=== PATIENT | male | born 1975 | race Caucasian/White ===

== ENCOUNTER 2018-05-03 20:59 | Emergency (ER) | payer BC, OTHER ==
--- OUTSIDE RECORDS SUMMARY | 2018-05-03 21:02 | XMS REPORT | Encounter Summary ---
:1975 Author Reason for Visit Medical Complaint Instructions 1. Acute right otitis media amoxicillin 500 mg capsule 2. Fluid level behind tympanic membrane fluticasone 50 mcg/actuation nasal spray,suspension 3. Elevated blood pressure elevated blood pressure: care instructions 4. Body mass index 30+ - obesity Discussion Note: None recorded. Plan of Care Patient Instructions Handouts given to patient giving further instructions and care regarding diagnosis recommended and discussed to F/U if symptoms persist or worsen. Reminders Provider Appointments None recorded. Lab None recorded. Referral None recorded. Procedures None recorded. Surgeries None recorded. Imaging None recorded. Medications Name Start Date amoxicillin 500 mg capsule Take 1 capsule twice a day by oral route for 7 days. fluticasone 50 mcg/actuation nasal spray,suspension [place] 1 spray every day by intranasal route. lisinopril 5 mg tablet TAKE ONE (1) TABLET(S) BY MOUTH ONCE A DAY. Medications Administered None recorded. Vitals Height Weight BMI Blood Pressure 6 ft 2 in 250 lbs 32.1 kg/m2 138/90 mm[Hg] Lab Results None recorded. Allergies Code Code System Name Reaction Severity Status Onset RxNorm Azithromycin Active Problems None recorded. Procedures None recorded. Vaccine List Vaccine Type Td(adult) unspecified formulation 10/10/2014 Social History Smoking Status Former Smoker Past Encounters 04/20/2018 Acute Right Otitis Media; Fluid Level behind Tympanic Membrane; Elevated Blood Pressure; Body Mass Index 30+ - Obesity NATHALIE Low-C: [id number], [place] [address], Ph. [phone] History of Present Illness Headache Reported By: Patient HPI: Location: occipital, temporal, band around head. Quality: not the worst headache ever, similar to previous headaches, aching, throbbing. Severity: pain level 5/10. Duration: occur many times in groups or clusters, started 3 days ago. Onset/Timing: worse, abrupt onset, occur daily. MIDAS: Migraine Disability Assessment 1. On how many days in the last 3 months did you miss work or school because of your headaches? 3, 2. How many days in the last 3 months was your productivity at work or school reduced by half or more because of your headaches? 3 (Do not include days counted in question 1), 3. On how many days in the last 3 months did you not do household work because of headaches? 0, 4. How many days in the last 3 months was your productivity in household work reduced by half or more because of your headaches? 3 (Do not include days counted in Question 3.), 5. On how many days in the last 3 months did you miss family, social or leisure activities because of your headaches? 0, Score (add 1-5): 6 to 10 - Grade 2 - Mild or infrequent disability, A. On how many days in the last three months did you have a headache? 3, B. On a scale of 0 - 10, on average how painful were these headaches (where 0=no pain at all and 10=pain as bad as it can be)? 5. Modifying factors: OTC medication, nothing gives relief, nothing makes it worse. Associated Symptoms: no fever/chills, no muscle aches, no headache, no vomiting, no sensitivity to light, tearing/watery eyes, no confusion, no slurred speech, no double vision, no motor paralysis, no sleep disturbances, no hoarseness, no sore throat, no hearing loss Review of Systems Basic Reported By: Patient Constitutional: Constitutional: no fever Eyes: Eyes: no eye complaints Ebjn-Wlbw-Ggzfc-Throat: Ears: no ear complaints. Nose: nose/sinus problems. Mouth/Throat: no sore throat Respiratory: Respiratory: no cough, no wheezing Gastrointestinal: Gastrointestinal: no abdominal pain Genitourinary: Genitourinary: no urinary complaints Musculoskeletal: Musculoskeletal: no back pain Skin: Skin: no rashes Neurologic: Neurologic: no headaches, headache Physical Exam Adult Basic, Adult Male Complete Reported By: Patient Constitutional: General Appearance: healthy-appearing, well-nourished, well-developed. Level of Distress: NAD. Ambulation: ambulating normally Psychiatric: Mental Status: active and alert. Orientation: to time, to place, to person Eyes: Lids and Conjunctivae: non-injected, no discharge, no pallor. Pupils: PERRLA. Corneas: grossly intact, fluorescein stain--normal. EOM: EOMI. Lens: clear. Sclerae: non-icteric. Vision: acuity grossly intact, peripheral vision grossly intact Wao-Lyqc-Mripa-Throat: Ears: no lesions on external ear, no outer ear tenderness, EACs clear, TM mobility normal, TM erythematous, middle ear fluid. Hearing: no hearing loss. Nose: no lesions on external nose, nares patent, no septal deviation, nasal passages clear, no sinus tenderness, no nasal discharge. Lips, Teeth, and Gums: no mouth or lip ulcers, no bleeding gums, normal dentition. Oropharynx: moist mucous membranes, no erythema, no exudates, tonsils not enlarged Lungs: Respiratory effort: no dyspnea, no tachypnea, no use of accessory muscles, no intercostal retractions. Auscultation: breath sounds normal, good air movement Cardiovascular: Heart Auscultation: RRR, no murmurs. Pulses including femoral / pedal: normal throughout Musculoskeletal:: Motor Strength and Tone: normal motor strength, normal tone, normal. Joints, Bones, and Muscles: normal movement of all extremities, no bony abnormalities, no contractures, no malalignment, no tenderness. Extremities: no cyanosis, no edema, no varicosities, no palpable cord Neurologic: Gait and Station: normal gait, normal station. Cranial Nerves: grossly intact. Sensation: grossly intact. Reflexes: DTRs 2+ bilaterally throughout Skin: Inspection and palpation: no rash, no lesions, no ulcer, no abnormal nevi, no induration, no nodules, good turgor, no jaundice. Nails: normal Back: Thoracolumbar Appearance: normal curvature Abdomen: Bowel Sounds: normal
--- OUTSIDE RECORDS SUMMARY | 2018-05-03 21:02 | XMS REPORT | Continuity of Care Document ---
:1975 Author Organization Interface Problems Problem Status Onset Classification Date Comments Source Date Reported Fluid level Diagnosis 04/20/2018 [facility] behind 8 tympanic membrane Acute right Diagnosis 04/20/2018 [facility] otitis media 8 Body mass Diagnosis 04/20/2018 [facility] index 30+ - 8 obesity Elevated Diagnosis 04/20/2018 [facility] blood 8 pressure Medications Medication Details Route Status Patient Ordering Order Source Instructions Provider Date Amoxicillin amoxicillin Active [facility] 500 MG Oral 500 mg Capsule capsule Take 1 capsule twice a day by oral route for 7 days. Fluticasone fluticasone Active [facility] propionate 50 0.05 MG/ACTUAT mcg/actuation Metered Dose nasal Nasal [place] spray,suspens ion [place] 1 spray every day by intranasal route. Lisinopril 5 lisinopril 5 Active [facility] MG Oral Tablet mg tablet TAKE ONE (1) TABLET(S) BY MOUTH ONCE A DAY. Allergies, Adverse Reactions, Alerts Substance Category Reaction Severity Reaction Status Date Comments Source type Reported Azithromycin Allergy to [facility] substance 8 Immunizations Immunization Date Given Site Status Last Comments Source Updated Td(adult) 10/10/2014 completed [facility] unspecified formulation Results Order Results Value Reference Date Interpretation Comments Source Name Range Vital Signs Vital Sign Value Date Comments Source Diastolic (mm Hg) 90 04/20/2018 [facility] Height 74 04/20/2018 [facility] Systolic (mm Hg) 138 04/20/2018 [facility] Weight 250 04/20/2018 [facility] Encounters Location Location Encounter Encounter Reason Attending ADM DC Status Source Details Type Number For Provider Date Date Visit [place] - Vicenta [id number] Vicenta 04/20 [facility] Gary [id number] Gary /2017 - [employer] OPERATOR-C: [id number] [place] [address] , Ph. Procedures Procedure Code Date Perfomer Comments Source
[2018-05-03] MEDS ORDERED: NA CHLORIDE 0.9% 1,000 ML ONE (22:06)
[2018-05-03 22:24] LABS: Absolute Lymphocytes (CBC) 2.6 K/uL (0.7-4.9); Absolute Monocytes 0.7 K/uL (0.1-1.3); Absolute Neutrophil 3.5 K/uL (1.8-8.0); Basophils % 0.4 % (0-1.3); Eosinophils % 1.8 % (0-4.4); Hematocrit 39.7 % (39.6-49.0); MCH 29.8 pg (27.0-35.0); MCV 87.4 fL (80-100); MPV 8.1 fL (7.6-11.3); Monocytes % 10.2 % (3.3-12.3); RBC Red Blood Cell Count 4.54 M/uL (4.33-5.43)
[2018-05-03 22:34] LABS: Protime INR 0.97
--- NOTE | 2018-05-03 22:37 | RAD REPORT ---
EXAM DESCRIPTION: CT - Head Brain Wo Cont - 05/03/2018 9:59 pm CLINICAL HISTORY: Right-sided facial numbness COMPARISON: CT head October 2016 TECHNIQUE: Axial 5 mm thick images of the head were obtained without IV contrast. All CT scans are performed using dose optimization technique as appropriate and may include automated exposure control or mA/KV adjustment according to patient size. FINDINGS: No intracranial hemorrhage, mass, edema or shift of mid-line structures. No acute infarcti on changes seen. No abnormal extra-axial fluid collections. Ventricles are normal. Mastoid air cells and visualized portions of the paranasal sinuses are clear. No acute bony findings. IMPRESSION: Negative non-contrast CT head examination. Continued, unexplained neurologic symptoms c an be further addressed with MR imaging. No significant change from comparison.
[2018-05-03 22:53] LABS: ALT/SGPT 28 U/L (12-78); AST/SGOT 16 U/L (15-37); Albumin 4.3 g/dL (3.4-5.0); Alkaline Phosphatase 68 U/L (45-117); BUN Blood Urea Nitrogen 15 mg/dL (7-18); Bicarbonate 24 mmol/L (21-32); Bilirubin Direct 0.2 mg/dL (0-0.2); Bilirubin Total 0.7 mg/dL (0.2-1.0); CKMB Creatine Kinase MB < 1.0 ng/mL (0.3-3.6); Creatine Phosphokinase 110 U/L (39-308); Glucose Level 100 mg/dL (74-106); Magnesium 2.2 mg/dL (1.8-2.4); NT PRO-BNP 13 pg/mL (<125); Potassium 3.8 mmol/L (3.5-5.1); Protein, Total 7.6 g/dL (6.4-8.2); Sodium Level 140 mmol/L (136-145)
--- NOTE | 2018-05-03 23:04 | RAD REPORT ---
EXAM DESCRIPTION: RAD - Chest Single View - 05/03/2018 10:07 pm CLINICAL HISTORY: Hypertension Chest pain. COMPARISON: Chest Single View dated 11/08/2016 FINDINGS: Portable technique limits examination quality. The lungs are grossly clear. The heart is normal in size. No displaced fractures. IMPRESSION: No acute intrathoracic process suspected.
--- NOTE | 2018-05-03 23:32 | EDPHYS ---
Physician Documentation [facility] Name: Jonn Mane Age: 42 yrs Sex: Male : 1975 Arrival Date: 05/03/2018 Time: 21:11 Bed 18 Private MD: ED Physician Navid Lara HPI: 05/03 21:48 This 42 yrs old Male presents to ER via Ambulatory with complaints of cp Numbness Of Face, Near Syncope, Dizziness. 21:48 The patient's problem is reported as weakness, that is generalized, dizziness, cp lightheaded, near syncope, paresthesias of face. Onset: The symptoms/episode began/occurred today. Duration: This was a single incident, now improved. Context: symptoms became apparent this afternoon, occurred at home, occurred while the patient was at rest, Possible contributing factors include: recent medication change, blood pressure medication was increased. 21:48 Associated signs and symptoms: Pertinent negatives: abdominal pain, chest pain, cp confusion, headache, vomiting. Severity of symptoms: in the emergency department the symptoms have improved markedly. Patient's baseline: Neuro: alert and fully oriented, Motor: no deficits, Ambulation: walks without assistance, Speech: normal. Historical: - Allergies: 21:25 Azithromycin; aj1 - Home Meds: 21:25 lisinopril 20 mg Oral tab 1 tab once daily [Active]; Lipitor 10 mg Oral tab 1 tab once aj1 daily [Active]; gabapentin oral oral nightly [Active]; - PMHx: 21:25 Hypertension; Hyperlipidemia; aj1 - PSHx: 21:25 bilateral hip replacements; aj1 - Immunization history:: Flu vaccine is up to date. - Social history:: Smoking status: Patient/guardian denies using tobacco. - Ebola Screening: : Patient denies travel to an Ebola-affected area in the 21 days before illness onset. ROS: 21:55 Constitutional: Negative for body aches, chills, fever, poor PO intake. cp 21:55 Eyes: Negative for injury, pain, redness, and discharge. cp 21:55 ENT: Negative for drainage from ear(s), ear pain, sore throat, difficulty swallowing, difficulty handling secretions. 21:55 Cardiovascular: Negative for chest pain, edema, palpitations. 21:55 Respiratory: Negative for cough, shortness of breath, wheezing. 21:55 Abdomen/GI: Negative for abdominal pain, nausea, vomiting, and diarrhea, constipation, anorexia, black/tarry stool, rectal bleeding. 21:55 Back: Negative for radiated pain. 21:55 : Negative for urinary symptoms. 21:55 MS/extremity: Positive for paresthesias, of the face. 21:55 Skin: Negative for cellulitis, rash. 21:55 Neuro: Positive for dizziness, near syncope, general weakness. 21:55 All other systems are negative. Exam: 21:55 ECG was reviewed by the Attending Physician. cp 22:00 Constitutional: The patient appears in no acute distress, alert, awake, comfortable, cp non-diaphoretic, non-toxic, well developed, well nourished. 22:00 Head/Face: Normocephalic, atraumatic. Eyes: Pupils equal round and reactive to light, cp extra-ocular motions intact. Lids and lashes normal. Conjunctiva and sclera are non-icteric and not injected. Cornea within normal limits. Periorbital areas with no swelling, redness, or edema. ENT: Nares patent. No nasal discharge, no septal abnormalities noted. Tympanic membranes are normal and external auditory canals are clear. Oropharynx with no redness, swelling, or masses, exudates, or evidence of obstruction, uvula midline. Mucous membranes moist. Neck: Trachea midline, no thyromegaly or masses palpated, and no cervical lymphadenopathy. Supple, full range of motion without nuchal rigidity, or vertebral point tenderness. No Meningismus. Chest/axilla: Normal chest wall appearance and motion. Nontender with no deformity. No lesions are appreciated. Cardiovascular: Regular rate and rhythm with a normal S1 and S2. No gallops, murmurs, or rubs. Normal PMI, no JVD. No pulse deficits. Respiratory: Lungs have equal breath sounds bilaterally, clear to auscultation and percussion. No rales, rhonchi or wheezes noted. No increased work of breathing, no retractions or nasal flaring. Abdomen/GI: Soft, non-tender, with normal bowel sounds. No distension or tympany. No guarding or rebound. No evidence of tenderness throughout. Skin: Warm, dry with normal turgor. Normal color with no rashes, no lesions, and no evidence of cellulitis. Neuro: Awake and alert, GCS 15, oriented to person, place, time, and situation. Cranial nerves II-XII grossly intact. Motor strength 5/5 in all extremities. Sensory grossly intact. Cerebellar exam normal. Normal gait. 23:22 Radiologist reports: no acute findings Vital Signs: 21:25 BP 164 / 105; Pulse 84; Resp 18; Temp 98.2; Pulse Ox 100% on R/A; Weight 113.4 kg (R); aj1 Height 6 ft. 2 in. (187.96 cm) (R); Pain 0/10; 23:09 BP 126 / 88; Pulse 77; Resp 16 S; Pulse Ox 97% on R/A; jd3 23:17 BP 131 / 76 Supine; Pulse 77; Resp 16 S; Pulse Ox 99% on R/A; jd3 23:17 BP 139 / 93 Sitting; Pulse 80; Resp 16 S; Pulse Ox 100% on R/A; jd3 23:17 BP 134 / 89 Standing; Pulse 78; Resp 16 S; Pulse Ox 100% on R/A; Pain 0/10; jd3 21:25 Body Mass Index 32.10 (113.40 kg, 187.96 cm) aj 23:17 doen by [facility] apparatus engineering technologist jd3 MDM: 21:39 Patient medically screened. cp 22:00 Differential diagnosis: CVA, TIA, metabolic disorder, drug effects. cp 23:29 Data reviewed: vital signs, nurses notes, lab test result(s), EKG, radiologic studies, cp CT scan, plain films. 05/03 21:47 Order name: Basic Metabolic Panel; Complete Time: 23:19 cp 05/03 23:19 Interpretation: Normal except: CL 108; GFR 74. cp 05/03 21:47 Order name: CBC with Diff; Complete Time: 23:19 cp 05/03 23:19 Interpretation: Normal except: HGB 13.5. cp 05/03 21:47 Order name: Ckmb; Complete Time: 23:19 cp 05/03 21:47 Order name: CPK; Complete Time: 23:19 cp 05/03 21:47 Order name: LFT's; Complete Time: 23:19 cp 05/03 21:47 Order name: Magnesium; Complete Time: 23:19 cp 05/03 21:47 Order name: NT PRO-BNP; Complete Time: 23:19 cp 05/03 21:47 Order name: PT-INR; Complete Time: 23:19 cp 05/03 21:47 Order name: Ptt, Activated; Complete Time: 23:19 cp 05/03 21:47 Order name: Troponin (emerg Dept Use Only); Complete Time: 23:19 cp 05/03 23:20 Interpretation: TROPED < 0.02; Reviewed. 05/03 21:47 Order name: XRAY Chest (1 view); Complete Time: 23:19 cp 05/03 21:47 Order name: CT Head Brain wo Cont; Complete Time: 23:19 cp 05/03 23:26 Order name: Urine Dipstick--Ancillary (enter results) rg2 05/03 21:38 Order name: EKG; Complete Time: 21:39 cp 05/03 21:38 Order name: EKG - Nurse/Tech; Complete Time: 21:52 cp 05/03 21:38 Order name: Orthostatics; Complete Time: 23:25 cp 05/03 21:47 Order name: Cardiac monitoring; Complete Time: 21:51 cp 05/03 21:47 Order name: IV Saline Lock; Complete Time: 22:01 cp 05/03 21:47 Order name: Labs collected and sent; Complete Time: 22:16 cp 05/03 21:47 Order name: O2 Per Protocol; Complete Time: 21:52 cp 05/03 21:47 Order name: O2 Sat Monitoring; Complete Time: 21:52 cp 05/03 21:47 Order name: Urine Dipstick-Ancillary (obtain specimen); Complete Time: 23:25 cp EC:55 Rate is 72 beats/min. Rhythm is regular. ND interval is normal. QRS interval is cp prolonged at 110 msec. QT interval is normal. No ST changes noted. Interpreted by me. Reviewed by me. Administered Medications: 22:09 Drug: NS 0.9% 1000 ml Route: IV; Rate: 1 bolus; Site: right antecubital; jd3 23:55 Follow up: Response: No adverse reaction; IV Status: Completed infusion; IV Intake: jd3 1000ml Disposition: 05/04 06:55 Co-signature as Attending Physician, Navid Lara MD I agree with the assessment and rosangela plan of care. Disposition: 05/03/18 23:32 Discharged to Home. Impression: Dizziness, Weakness - General. - Condition is Stable. - Discharge Instructions: Dizziness, Near-Syncope, Weakness, Managing Your Hypertension. - Medication Reconciliation Form, Thank You Letter, Antibiotic Education, Prescription Opioid Use form. - Follow up: Private Physician; When: 1 - 2 days; Reason: Recheck today's complaints. - Problem is new. - Symptoms have improved. Signatures: Dispatcher [employer] EDLexi Enciso RN RN aj1 Navid Lara MD MD cha Page, Corey, PA PA cp Davies, Jonathon, RN RN jd3 Corrections: (The following items were deleted from the chart) 05/03 23:55 23:32 05/03/2018 23:32 Discharged to Home. Impression: Dizziness; Weakness - General. jd3 Condition is Stable. Forms are Medication Reconciliation Form, Thank You Letter, Antibiotic Education, Prescription Opioid Use. Follow up: Private Physician; When: 1 - 2 days; Reason: Recheck today's complaints. Problem is new. Symptoms have improved. cp
--- NOTE | 2018-05-03 23:32 | ER ---
Nurse's Notes [facility] Name: Jonn Mane Age: 42 yrs Sex: Male : 1975 Arrival Date: 05/03/2018 Time: 21:11 Bed 18 Private MD: Diagnosis: Dizziness;Weakness-General Presentation: 05/03 21:18 Presenting complaint: Patient states: Light-headed and dizzy. States he has been having aj1 BP issues so he checked it and it was 153/97 and he has not been feeling good, then the right side of his face started to feel numb. Reports generalized weakness, but states that he does not have more weakness on one side than the other. States that his facial numbness has resolved, but now his right arm is tingling. 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 Equal smile, machine operator hop worker equal bilaterally, gait steady. Transition of care: patient was not received from another setting of care. Onset of symptoms was May 03, 2018 at 20:00. Risk Assessment: Do you want to hurt yourself or someone else? Patient reports no desire to harm self or others. Initial Sepsis Screen: Does the patient meet any 2 criteria? No. Patient's initial sepsis screen is negative. Does the patient have a suspected source of infection? No. Patient's initial sepsis screen is negative. Care prior to arrival: None. 21:18 Method Of Arrival: Ambulatory aj1 21:18 Acuity: [id number] 3 aj1 Triage Assessment: 21:25 General: Appears in no apparent distress. uncomfortable, Behavior is calm, cooperative, aj1 appropriate for age. Pain: Denies pain. Neuro: Level of Consciousness is awake, alert, obeys commands, [place] Planning Manager are equal bilaterally Moves all extremities. Full function Gait is steady, Speech is normal, Reports numbness in right arm. Cardiovascular: Patient's skin is warm and dry. Respiratory: Airway is patent Respiratory effort is even, unlabored, Respiratory pattern is regular, symmetrical. Historical: - Allergies: 21:25 Azithromycin; aj1 - Home Meds: 21:25 lisinopril 20 mg Oral tab 1 tab once daily [Active]; Lipitor 10 mg Oral tab 1 tab once aj1 daily [Active]; gabapentin oral oral nightly [Active]; - PMHx: 21:25 Hypertension; Hyperlipidemia; aj1 - PSHx: 21:25 bilateral hip replacements; aj1 - Immunization history:: Flu vaccine is up to date. - Social history:: Smoking status: Patient/guardian denies using tobacco. - Ebola Screening: : Patient denies travel to an Ebola-affected area in the 21 days before illness onset. Screenin:34 Abuse screen: Denies threats or abuse. Nutritional screening: No deficits noted. jd3 Tuberculosis screening: No symptoms or risk factors identified. Fall Risk Ambulatory Aid- None/Bed Rest/Nurse Assist (0 pts). Gait- Normal/Bed Rest/Wheelchair (0 pts) Mental Status- Oriented to own ability (0 pts). Total Monzon Fall Scale indicates No Risk (0-24 pts). Assessment: 21:34 General: Appears uncomfortable, Behavior is cooperative, appropriate for age, anxious. jd3 Pain: Denies pain. Neuro: Level of Consciousness is awake, alert, obeys commands, Oriented to person, place, time, situation, Appropriate for age [place] Planning Manager are equal bilaterally Moves all extremities. Full function Gait is steady, Speech is normal, Facial symmetry appears normal, Pupils are PERRLA, Intact Reports dizziness, weakness generalized. Cardiovascular: Heart tones S1 S2 present Capillary refill < 3 seconds Patient's skin is warm and dry. Respiratory: Airway is patent Respiratory effort is even, unlabored, Respiratory pattern is regular, symmetrical, Breath sounds are clear bilaterally. GI: Abdomen is round Bowel sounds present X 4 quads. : No signs and/or symptoms were reported regarding the genitourinary system. EENT: No signs and/or symptoms were reported regarding the EENT system. Derm: Skin is intact, Skin is dry, Skin is normal, Skin temperature is warm. Musculoskeletal: Circulation, motion, and sensation intact. Range of motion: intact in all extremities. 23:09 Reassessment: Patient appears in no apparent distress at this time. Patient and/or jd3 family updated on plan of care and expected duration. Pain level reassessed. Patient is alert, oriented x 3, equal unlabored respirations, skin warm/dry/pink. Vital Signs: 21:25 BP 164 / 105; Pulse 84; Resp 18; Temp 98.2; Pulse Ox 100% on R/A; Weight 113.4 kg (R); aj1 Height 6 ft. 2 in. (187.96 cm) (R); Pain 0/10; 23:09 BP 126 / 88; Pulse 77; Resp 16 S; Pulse Ox 97% on R/A; jd3 23:17 BP 131 / 76 Supine; Pulse 77; Resp 16 S; Pulse Ox 99% on R/A; jd3 23:17 BP 139 / 93 Sitting; Pulse 80; Resp 16 S; Pulse Ox 100% on R/A; jd3 23:17 BP 134 / 89 Standing; Pulse 78; Resp 16 S; Pulse Ox 100% on R/A; Pain 0/10; jd3 21:25 Body Mass Index 32.10 (113.40 kg, 187.96 cm) aj1 23:17 doen by [facility] industrial cleaning technician jd3 ED Course: 21:11 Patient arrived in ED. es 21:23 Triage completed. aj1 21:25 Arm band placed on Patient placed in an exam room. aj1 21:29 Vincent Bonner RN is Primary Nurse. jd3 21:34 Patient has correct armband on for positive identification. Bed in low position. Call jd3 light in reach. Side rails up X 1. 21:38 Navid Cotter PA is PHCP. cp 21:38 Navid Lara MD is Attending Physician. cp 21:[address] 2 21:58 CT completed. Patient tolerated procedure well. Patient moved back from CT. nj 21:59 CT Head Brain wo Cont In Process Unspecified. EDMS 22:00 Inserted saline lock: 20 gauge in right antecubital area, using aseptic technique. jd3 Blood collected. placed by [facility] [employer] 22:04 X-ray completed. Portable x-ray completed in exam room. Patient tolerated procedure ag1 well. 22:05 XRAY Chest (1 view) In Process Unspecified. EDMS 23:53 No provider procedures requiring assistance completed. IV discontinued, intact, jd3 bleeding controlled, No redness/swelling at site. Pressure dressing applied. Administered Medications: 22:09 Drug: NS 0.9% 1000 ml Route: IV; Rate: 1 bolus; Site: right antecubital; jd3 23:55 Follow up: Response: No adverse reaction; IV Status: Completed infusion; IV Intake: jd3 1000ml Intake: 23:55 IV: 1000ml; Total: 1000ml. jd3 Outcome: 23:32 Discharge ordered by . cp 23:54 Discharged to home ambulatory, with family. jd3 23:54 Condition: stable 23:54 Discharge instructions given to patient, family, Instructed on discharge instructions, follow up and referral plans. Demonstrated understanding of instructions, follow-up care. 23:55 Patient left the ED. jd3 Signatures: Dispatcher [employer] Lexi Cartagena, CISCO RN aj1 Violette Pa Ashley ag1 Navid Cotter PA PA cp Jordan, Nathan nj McGuire, Victoria 2 Vincent Bonner RN RN jd3
[2018-05-03 23:58] LABS: Urine Blood TRACE (NEG); Urine Glucose NEGATIVE (NEG); Urine Protein NEGATIVE (NEG); Urine Specific Gravity 1.015 (1.005-1.030)
--- NOTE | 2018-05-04 06:48 | EKG ---
Test Date: 2018-05-03 Test Time: 21:46:10 [place]: DANYA MEASUREMENT RESULTS: Intervals: Rate: 72 MA: 140 QRSD: 110 QT: 384 QTc: 420 [place]: P: 42 MA: 140 QRS: 3 T: 29 INTERPRETIVE STATEMENTS: Normal sinus rhythm Normal ECG Compared to ECG 11/08/2016 10:42:35 No significant changes Electronically Signed On 05-04-18 06:47:58 CDT by Tarik Schaefer
== END 2018-05-03 23:55 | disposition home or self-care (01) ==
LOC: ER 20:59
DX: R42 Dizziness and giddiness (principal); R53.1 Weakness; I10 Essential (primary) hypertension; E78.5 Hyperlipidemia, unspecified; Z88.1 Allergy status to other antibiotic agents; Z96.643 Presence of artificial hip joint, bilateral
CPT/HCPCS: 36415; 70450; 71045; 80048; 80076; 81003; 82550; 82553; 83735; 83880; 84484; 85025; 85610; 85730; 93005; 96360; 96361; 99284; J7030